=== PATIENT | male | born 1995 | race African-American/Black ===

== ENCOUNTER 2016-10-15 11:51 | Emergency (ER) | payer OTHER ==
[~2016-10-15] VITALS: Ht 172.7 cm; Wt 82.8 kg
[2016-10-15 12:23] VITALS: Ht 172.7 cm; Wt 82.8 kg
[2016-10-15] MEDS ORDERED: UDROBDM PO (14:16)
[2016-10-15] MEDS ORDERED: CETI10CA PO (14:17)
--- NOTE | 2016-10-15 14:21 | ERD ---
ER Documentation Chief Complaint Date/Time DATE: 10/15/16 TIME: 14:19 Chief Complaint COUGH X1 WEEK, MEDIAL CHEST PAIN WHILE COUGHING HPI Is a 21-year-old male who presents the emergency department today complaining of intermittent cough for the past week. Patient states he was having some substernal chest pain with coughing but it has improved. States that yesterday he took the medication but he is unsure of the name. Denies any fevers or chills, sore throat, nausea vomiting or diarrhea. ROS All systems reviewed and are negative except as per history of present illness. Medications Home Meds Active Scripts Cetirizine Hcl* (Zyrtec*) 10 Mg Capsule, 10 MG PO DAILY, #14 TAB.CHEW Prov:SOHAM WRIGHT PA-C 10/15/16 Guaifenesin-Dextromethorphan* (Robitussin* DM) 100MG/10MG/5ML Syrup, 10 ML PO Q4H Y for COUGH for 5 Days, ML Prov:SOHAM WRIGHT PA-C 10/15/16 PMhx/Soc Hx Alcohol Use: No Hx Substance Use: No Hx Tobacco Use: No Physical Exam Vitals Vital Signs Date Time Temp Pulse Resp B/P Pulse Ox O2 Delivery O2 Flow Rate FiO2 10/15/16 12:23 97.9 97 16 161/87 100 Physical Exam Const: Pleasant, no acute distress Head: Atraumatic Eyes: Normal Conjunctiva ENT: Ears TMs normal. Nose no drainage. Throat no erythema no exudate. Neck: Full range of motion..~ No meningismus. Resp: Clear to auscultation bilaterally. No wheezing. Cardio: Regular rate and rhythm, no murmurs Skin: No petechiae or rashes Neur: Awake and alert Psych: Normal Mood and Affect Procedures/MDM Is a 21-year-old male presents to the emergency department today complaining of intermittent cough. Patient symptoms are improving. Indicated his cough is worse at night. Patient's physical exam is benign. His oxygen saturations 100% . He is afebrile and otherwise well-appearing. He is not tachycardic. I do not feel the patient requires a chest x-ray. Patient symptoms at this time is consistent with cough and likely viral URI. I have low suspicion for strep pharyngitis, peritonsillar abscess, retropharyngeal abscess, otitis media, PNA, sinusitis, abscess, meningitis, sepsis, asthma exacerbation, or other acute infectious bacterial process. I do not feel the patient requires antibiotics at this time. Patient was given a prescription for Robitussin as well as Zyrtec. At this time the patient is stable for discharge and outpatient management. They should follow up with their PCP in the next 1-2. They may return to the emergency department sooner if symptoms persist or worsen. Patient understood and agreed with the plan. Departure Diagnosis: Primary Impression: Cough Condition: Fair Patient Instructions: Uri, Viral, No Abx (Adult) Additional Instructions: Call your primary care doctor TOMORROW for an appointment during the next 1-2 days.See the doctor sooner or return here if your condition worsens before your appointment time. Take Robitussin and Zyrtec for cough Drink plenty of fluids SOHAM WRIGHT PA-C Oct 15, 2016 14:21
== END 2016-10-15 14:18 | disposition home or self-care (01) ==
LOC: E/R 11:51
DX: R05 Cough (principal)
CPT/HCPCS: 99283